=== PATIENT | female | born 1975 ===

== ENCOUNTER 2024-08-11 01:43 | Emergency (ER) | payer BC, SELFPAY ==
[2024-08-11 01:45] VITALS: BP 102/62
[2024-08-11 02:30] VITALS: BP 95/65
[2024-08-11 02:31] VITALS: BMI 18.9
[2024-08-11 02:52] LABS: % Basophils 0.2 % (0-2); % Eosinophils 0.5 % (0-6); % Immature Granulocytes 0.2 % (0-0.5); % Lymphocytes 22.5 % (20.5-51.1); % Monocytes 7.4 % (1.7-9.3); % Neutrophils 69.2 % (42.2-75.2); Absolute Lymphocytes 1.3 10^3/uL (1.2-3.4); Absolute Monocytes 0.4 10^3/uL (0.1-0.6); Absolute Neutrophils 3.9 10^3/uL (1.4-6.5); Hematocrit 33.5 % (37.0-47.0); Hemoglobin 11.2 g/dL (12.0-16.0); Mean Corp Hgb Conc. 33.4 g/dL (33.0-37.0); Mean Corpuscular Hgb 29.2 pg (27.0-31.0); Mean Corpuscular Volume 87.2 fL (81.0-99.0); Mean Platelet Volume 10.6 fL (7.4-10.4); Nucleated Red Blood Cells % 0 %; Platelet Count 238 10^3/uL (130-400); Red Blood Cell Count 3.84 10^6/uL (4.20-5.40); Red Cell Dist. Width 12.8 % (11.5-14.5); White Blood Cell Count 5.7 10^3/uL (4.8-10.8)
[2024-08-11 03:00] VITALS: BP 92/67
[2024-08-11 03:14] LABS: ALT (SGPT) 23 U/L (0-35); AST (SGOT) 41 U/L (14-36); Albumin 4.8 g/dl (3.5-5.0); Alkaline Phosphatase 26 U/L (38-126); Blood Urea Nitrogen 11 mg/dl (7-17); Calcium 8.9 mg/dl (8.4-10.2); Carbon Dioxide 23 mmol/L (22-30); Chloride 97 mmol/L (98-107); Estimated Creatinine Clearance 68 ml/min; Glucose 108 mg/dl (70-99); Potassium 4.1 mmol/L (3.5-5.1); Sodium 136 mmol/L (135-145); Total Bilirubin 0.1 mg/dl (0.2-1.3); Total Protein 7.2 g/dl (6.3-8.2); eGFR > 60.00
--- NOTE | 2024-08-11 03:44 | ED.GENMED ---
History of Present Illness
General
Chief Complaint: Alcohol Problem
Source: patient and family
Exam Limitations: none
Time Seen by Provider: 08/11/24 02:46
History of Present Illness
History of Present Illness:
48-year-old female presents to the emergency after consuming too much alcohol this evening. Patient drank wine and champagne. Patient was just coming off the stomach bug. Had 3 days of anorexia prior to this evening. Patient is here for
'hydration '. patient has no complaints.
Phy Exam
General Physical Exam
General Presentation: well appearing and mild distress
General age: appears stated age
General Skin: warm and dry
General Habitus: normal
General Mental: appears intoxicated
General Hydration: appears well hydrated
Cardiovascular Exam
Cardiovascular Exam: regular rate/rhythm
Pulmonary Exam
Pulmonary Exam: lungs clear and no respiratory distress
Gastrointestinal Exam
Gastrointestinal Exam: normal bowel sounds, non tender, soft and non distended
Neurological Exam
Neurological Exam: alert
Musculoskeletal Exam
Musculoskeletal Exam: full ROM and neuro vasc intact
Skin Exam
Skin Exam: normal color and warm/dry
Psychiatric Exam
Psychiatric Exam: normal mood/affect
Scores
Withdrawal Assessment of Alcohol
Withdrawal Assessment Completed?: Not applicable
Course
Orders/Labs/Results
Orders:
Orders
08/11/24 02:39
Complete Blood Count/With Diff Urgent
Comprehensive Metabolic Panel Urgent
08/11/24 03:43
0.9% Sodium Chloride 1000 ml [Nss] 1,000 ml IV BOLUS
Ondansetron Injectable [Zofran] 4 mg IV NOW STA
Abnormal Lab Results
08/11/24
02:39
RBC 3.84 L 10^6/uL
(4.20-5.40)
Hgb 11.2 L g/dL
(12.0-16.0)
Hct 33.5 L %
(37.0-47.0)
MPV 10.6 H fL
(7.4-10.4)
Chloride 97 L mmol/L
(98-107)
Glucose 108 H mg/dl
(70-99)
Total Bilirubin 0.1 L mg/dl
(0.2-1.3)
AST 41 H U/L
(14-36)
Alkaline Phosphatase 26 L U/L
(38-126)
08/11/24 02:39
08/11/24 02:39
Vital Signs
Initial and Last Documented VS:
Initial Vital Signs
Temp Pulse Resp BP Pulse Ox
97.2 F 78 18 102/62 100
08/11/24 01:45 08/11/24 01:45 08/11/24 01:45 08/11/24 01:45 08/11/24 01:45
Last Documented Vital Signs
Temp Pulse Resp BP Pulse Ox
97.2 F 85 14 97/55 100
08/11/24 01:45 08/11/24 05:00 08/11/24 05:00 08/11/24 05:00 08/11/24 05:01
*Critical Care Note
Total Time (30-74mins, 75-104mins- exclusive of procedures): Not Applicable
ED Attending Note
-
Portions of this chart may have been created with voice recognition software.� Occasional wrong word or��sound alike� substitutions may have occurred due to the inherent limitations of voice recognition software.
Discharge Plan
Departure
Patient Disposition: Home (Routine Discharge)
Date of Disposition: 08/11/24
Time of Disposition: 04:22
Patient with high blood pressure during this ER visit?: No
Condition: Good
Discharge Problem:
Alcohol intoxication
Instructions: Alcohol poisoning
Prescriptions:
New
ondansetron 4 mg tablet,disintegrating
4 mg PO Q8H 5 Days Qty: 15 0RF
Activity Restrictions/Additional Instructions:
It was a pleasure meeting you and taking part in your care. We hope for your continued healing and wellness.
Please read discharge instructions in their entirety. However, they are for general education and may not describe your exact diagnosis at discharge. Information on your ER visit and medical conditions were discussed with you along with appropriate
follow up information...
If indicated, please take your medications as instructed and indicated on discharge paperwork.
Please schedule a follow up appointment as directed. Call to schedule an appointment
Please return to the emergency department with ANY change in, persisting, or worsening of symptoms. If any of your symptoms do not improve, or persist, or become more severe within 6-12 hours, please return to the emergency department for further
care.
Please return to the emergency department if you develop a headache, neck pain/stiffness, fever greater than 100.4F, chest pain, shortness of breath, persistent nausea, vomiting, slurred speech, difficulty walking, numbness/tingling, weakness, signs
of infection or any other symptoms that are worrisome to you.
If you have any questions or concerns please do not hesitate to call the Hospital at or E-mail me directly at [email or web address]
Interventions
Interventions:
*Risk Screen - Suicide Last Done: 08/11/24 02:31
*General Assessment Last Done: 08/11/24 02:31
*Neglect/Abuse Screening Last Done: 08/11/24 02:31
ED- Fall Risk Assessment Last Done: 08/11/24 02:31
*ED COVID-19 Vaccine History Last Done: 08/11/24 02:31
*Nursing Disposition Last Done: 08/11/24 05:10
ED- Neurological Assessment Last Done: 08/11/24 02:33
ED-Psychological Assessment Last Done: 08/11/24 02:33
Discharge Date and Time
Discharge Date/Time: 08/11/24 05:10
Print Language: ARABIC
[2024-08-11] MEDS: ZOFRAN 4 MG IV (03:51)
[2024-08-11] MEDS: NSS 1000 IV (03:51)
[2024-08-11 04:00] VITALS: BP 87/57
[2024-08-11 04:52] VITALS: BP 82/59
--- NOTE | 2024-08-11 04:54 | EDRN ---
Dr Yu left discharge instructions to be given to pt - informed pt's bp remains in 80's. He will come back to speak with pt.
[2024-08-11 05:00] VITALS: BP 97/55
--- NOTE | 2024-08-11 05:05 | EDRN ---
Per Dr Yu, got pt up and had her walk around. Pt says she feels better and is ready to go home. No dizziness.
== END 2024-08-11 05:10 | disposition home or self-care (01) ==
LOC: EMR 01:43
PROVIDERS: EMERGENCY PHYSICIAN Student in an Organized Health Care Education/Training Program
DX: F10.129 Alcohol abuse with intoxication, unspecified (principal)
CPT/HCPCS: 99284; 96374; 96361; 80053; 85025

== ENCOUNTER 2025-06-29 11:59 | Emergency (ER) | payer BC, SELFPAY ==
[2025-06-29 12:04] VITALS: BP 118/78
--- NOTE | 2025-06-29 12:43 | ED.GENMED ---
History of Present Illness
<ELIU Pfeiffer - Last Filed: 06/30/25 15:04>
General
Chief Complaint: Skin Problem
Source: patient
Exam Limitations: none
Time Seen by Provider: 06/29/25 12:30
Nursing documentation reviewed up to this point in time: agreed with
History of Present Illness
History of Present Illness:
Patient is a 49-year-old female with past medical history of abscesses and cysts in the past presents for rectal abscess. She started with inflammation and what she describes as a small boil 4 to 5 days ago. It has gotten bigger. She denies any
fevers/drainage. Patient was at urgent care and sent to the ER for evaluation.
Phy Exam
<ELIU Pfeiffer - Last Filed: 06/30/25 15:04>
General Physical Exam
General Presentation: no apparent distress
General age: appears stated age
General Skin: warm and dry
General Habitus: normal
General Mental: alert
General Hydration: appears well hydrated
Gastrointestinal Exam
Gastrointestinal Exam: non tender, soft and other (+ abscess to right lower buttocks not involving the rectum + fluctuance )
Neurological Exam
Neurological Exam: alert and oriented x3
Musculoskeletal Exam
Musculoskeletal Exam: full ROM
Skin Exam
Skin Exam: normal color and warm/dry
Psychiatric Exam
Psychiatric Exam: normal mood/affect
Course
<ELIU Pfeiffer - Last Filed: 06/30/25 15:04>
Orders/Labs/Results
Orders:
Orders
06/29/25 12:47
IV Insert/Care/Rem.- Treatment PRN
0.9% Sodium Chloride 1000 ml [Nss] 1,000 ml IV BOLUS
06/29/25 12:48
CT Abd/Pel (IV only)-DH only Urgent
Comment:
Reason For Exam: right buttock abscess
06/29/25 13:22
Complete Blood Count/With Diff Urgent
Comprehensive Metabolic Panel Urgent
06/29/25 16:04
Amoxicillin 875 mg/Clav 125 mg [Augmentin 875 mg/125 mg] 1 tablet PO NOW STA
06/29/25 16:37
Wound Culture [Wound/Abscess/Other Culture] Urgent
HERVE Source: Buttock
Specimen Description:
Date Specimen was Collected: 06/29/25
Time Specimen was Collected: 16:35
Abnormal Lab Results
06/29/25
13:22
WBC 12.5 H 10^3/uL
(4.8-10.8)
RBC 4.14 L 10^6/uL
(4.20-5.40)
Hgb 11.5 L g/dL
(12.0-16.0)
Hct 36.4 L %
(37.0-47.0)
MCHC 31.6 L g/dL
(33.0-37.0)
Absolute Neuts (auto) 9.6 H 10^3/uL
(1.4-6.5)
Neutrophils % 76.9 H %
(42.2-75.2)
Lymphocytes % 15.0 L %
(20.5-51.1)
BUN 6 L mg/dl
(7-17)
06/29/25 13:22
06/29/25 13:22
Vital Signs
Initial and Last Documented VS:
Initial Vital Signs
Temp Pulse Resp BP Pulse Ox
97.9 F 70 16 118/78 100
06/29/25 12:04 06/29/25 12:04 06/29/25 12:04 06/29/25 12:04 06/29/25 12:04
Last Documented Vital Signs
Temp Pulse Resp BP Pulse Ox
97.9 F 70 16 118/78 100
06/29/25 12:04 06/29/25 12:04 06/29/25 12:04 06/29/25 12:04 06/29/25 12:44
Integrated Logistics Support Manager consulted with Physician
Integrated Logistics Support Manager consulted with physician?: Yes
Name of Physician Consulted: [email or web address]
<Oli Pimentel MD - Last Filed: 06/29/25 14:01>
Orders/Labs/Results
Orders:
Orders
06/29/25 12:47
IV Insert/Care/Rem.- Treatment PRN
0.9% Sodium Chloride 1000 ml [Nss] 1,000 ml IV BOLUS
06/29/25 12:48
CT Abd/Pel (IV only)-DH only Urgent
Comment:
Reason For Exam: right buttock abscess
06/29/25 13:22
Complete Blood Count/With Diff Urgent
Comprehensive Metabolic Panel Urgent
06/29/25 16:04
Amoxicillin 875 mg/Clav 125 mg [Augmentin 875 mg/125 mg] 1 tablet PO NOW STA
06/29/25 16:37
Wound Culture [Wound/Abscess/Other Culture] Urgent
HERVE Source: Buttock
Specimen Description:
Date Specimen was Collected: 06/29/25
Time Specimen was Collected: 16:35
Abnormal Lab Results
06/29/25
13:22
WBC 12.5 H 10^3/uL
(4.8-10.8)
RBC 4.14 L 10^6/uL
(4.20-5.40)
Hgb 11.5 L g/dL
(12.0-16.0)
Hct 36.4 L %
(37.0-47.0)
MCHC 31.6 L g/dL
(33.0-37.0)
Absolute Neuts (auto) 9.6 H 10^3/uL
(1.4-6.5)
Neutrophils % 76.9 H %
(42.2-75.2)
Lymphocytes % 15.0 L %
(20.5-51.1)
BUN 6 L mg/dl
(7-17)
06/29/25 13:22
06/29/25 13:22
Vital Signs
Initial and Last Documented VS:
Initial Vital Signs
Temp Pulse Resp BP Pulse Ox
97.9 F 70 16 118/78 100
06/29/25 12:04 06/29/25 12:04 06/29/25 12:04 06/29/25 12:04 06/29/25 12:04
Last Documented Vital Signs
Temp Pulse Resp BP Pulse Ox
97.9 F 70 16 118/78 100
06/29/25 12:04 06/29/25 12:04 06/29/25 12:04 06/29/25 12:04 06/29/25 12:44
Procedures
<ELIU Pfeiffer - Last Filed: 06/30/25 15:04>
Incision/Drainage/Joint Aspiration
Right:
Anethesia: 1% Lidocaine with Epi
Preparation: cleaned with Betadine
Type of procedure: incise
Description of abscess: greater than 3cm
Loculations broken up: Yes
How much fluid was obtained?: large amount
Fluid description: purulent
Treatment: packed with gauze
<ELIU Pfeiffer - Last Filed: 06/30/25 15:04>
MDM/Problems Addressed
Differential Diagnosis Includes:
Not limited to buttock abscess, possible hong rectal abscess but unlikely
MDM/Problems Addressed:
Patient is a 49-year-old female with a right buttock abscess. CAT scan negative for rectal involvement. Will incise and drain will DC on Augmentin. Patient denies any fever she is afebrile well-appearing case reviewed with ED physician evaluated
patient bedside. White count minimally elevated however afebrile patient very well-appearing
Patient tolerated incision and drainage well moderate to large amount of purulent drainage. will d/c w/ follow-up at [facility] as patient does not have a family doctor in the area discussed close outpatient follow-up
and return if any worsening of symptoms.
<ELIU Pfeiffer - Last Filed: 06/30/25 15:04>
*Radiology
Radiology exam reviewed: radiology read reviewed
*Pulse Oximetry
SaO2: 100
Oxygen Mode of Delivery: Room air
Patient hypoxic: no
*Critical Care Note
Total Time (30-74mins, 75-104mins- exclusive of procedures): Not Applicable
ED Attending Note
<ELIU Pfeiffer - Last Filed: 06/30/25 15:04>
-
Portions of this chart may have been created with voice recognition software.� Occasional wrong word or��sound alike� substitutions may have occurred due to the inherent limitations of voice recognition software.
<Oli Pimentel MD - Last Filed: 06/29/25 14:01>
ED Attending Note
Patient seen and examined by attending physician: Yes
ED Attending Note:
I have seen and evaluated the patient with a [id number] encounter. I have spoken to the advance practicer provider and involved in the medical history, the physical exam, medical decision making.
Evaluation and management service: agree unless noted differently below.
Results interpretation: agree unless noted differently below.
Focused HPI: 49-year-old female with history as noted presents with 5 days of rectal pain�she says painful bump near her rectum. No significant pain with bowel movements. No fevers or chills.
Physical exam: Awake and alert, not in distress. Patient has area of erythema, warmth, fluctuance on the right buttock with some erythema streaking towards the midline approximately 1 cm removed from anal verge
Medical Decision Makin-year-old female presents with rectal pain�appears to have a perirectal abscess. Check labs and CT to evaluate extent, will need I&D bedside versus OR depending on CT results.
Discharge Plan
Departure
Patient Disposition: Home (Routine Discharge)
Date of Disposition: 06/29/25
Time of Disposition: 16:31
Patient with high blood pressure during this ER visit?: No
Condition: Fair
Covid-19: Not Applicable
Discharge Problem:
Abscess
Instructions: Abscess incision and drainage - ED (DC)
Prescriptions:
New
amoxicillin-pot clavulanate 875-125 mg tablet
1 tab PO BID Qty: 14 0RF
No Action
ondansetron 4 mg tablet,disintegrating
4 mg PO Q8H 5 Days Qty: 15 0RF
Referrals:
[facility] [Outside]
NONE,* [Family Provider, Internal Medicine]
Activity Restrictions/Additional Instructions:
As discussed keep area clean and dry. Antibiotic twice a day for the next 7 days. Please follow with your family doctor(family practice clinic) in the next 2-3 days for reevaluation wound check/packing removal. Return if any worsening of symptoms.
Interventions
Interventions:
*Risk Screen - Suicide Last Done: 06/29/25 12:04
Discharge Date and Time
Discharge Date/Time: 06/29/25 16:51
Print Language: DANISH
[2025-06-29] MEDS: NSS 1000 IV (13:26)
[2025-06-29 13:32] LABS: Hematocrit 36.4 % (37.0-47.0); Hemoglobin 11.5 g/dL (12.0-16.0); Mean Corp Hgb Conc. 31.6 g/dL (33.0-37.0); Mean Corpuscular Volume 87.9 fL (81.0-99.0); Nucleated Red Blood Cells % 0 %; Platelet Count 316 10^3/uL (130-400); Red Cell Dist. Width 13.8 % (11.5-14.5)
[2025-06-29 13:57] LABS: ALT (SGPT) 13 U/L (0-35); AST (SGOT) 20 U/L (14-36); Albumin 4.5 g/dl (3.5-5.0); Alkaline Phosphatase 54 U/L (38-126); Blood Urea Nitrogen 6 mg/dl (7-17); Calcium 9.4 mg/dl (8.4-10.2); Carbon Dioxide 28 mmol/L (22-30); Chloride 102 mmol/L (98-107); Glucose 92 mg/dl (70-99); Potassium 4.1 mmol/L (3.5-5.1); Sodium 137 mmol/L (135-145); Total Protein 7.3 g/dl (6.3-8.2); eGFR > 60.00
[2025-06-29] MEDS: AUGMENTIN 875 MG/125 MG 1 TABLET PO (16:16)
== END 2025-06-29 16:51 | disposition home or self-care (01) ==
LOC: EMR 11:59
PROVIDERS: Nurse Practitioner; EMERGENCY PHYSICIAN Emergency Medicine
DX: K61.0 Anal abscess (principal)
CPT/HCPCS: 99284; 96360; 46050; 74177; 80053; 85025; 87070; 87205; Q9967

== ENCOUNTER 2025-07-01 15:14 | Emergency (ER) | payer BC, SELFPAY ==
[2025-07-01 15:18] VITALS: BP 132/75
[2025-07-01 16:01] VITALS: BMI 21.2
--- NOTE | 2025-07-01 16:18 | ED.GENMED ---
History of Present Illness
General
Chief Complaint: Wound Check/Suture Removal
Source: patient and records
Exam Limitations: none
Time Seen by Provider: 07/01/25 16:01
History of Present Illness
History of Present Illness:
49yoF with no significant past medical history presenting for a wound check. Patient was seen in the ED 2 days ago for a buttock abscess. I&D was performed and packing was placed. She was told to have the packing removed in 48 hours. She went to
urgent care to have this done. While she was being assessed, the urgent care provider noted some tenderness and sent her back to the ED for evaluation. Patient states her symptoms do seem significantly improved since drainage. She has been taking
doxycycline at home. She denies any fevers or chills.
Phy Exam
General Physical Exam
General Presentation: well appearing and no apparent distress
General Skin: warm and dry
General Habitus: normal
General Mental: alert
ENT Exam
ENT Exam: normocephalic
Pulmonary Exam
Pulmonary Exam: no respiratory distress
Neurological Exam
Neurological Exam: alert
Sanam Coma Scale
Eye Opening: Spontaneous
Verbal Response: Oriented
Motor Response: Obeys Commands
GCS Total Score: 15
Skin Exam
Skin Exam: warm/dry and other (L buttock abscess noted with packing in place. Small area of residual induration noted. No fluctuance or surrounding cellulitis. )
Psychiatric Exam
Psychiatric Exam: normal mood/affect
Course
Vital Signs
Initial and Last Documented VS:
Initial Vital Signs
Temp Pulse Resp BP Pulse Ox
98.7 F 69 20 132/75 100
07/01/25 15:18 07/01/25 15:18 07/01/25 15:18 07/01/25 15:18 07/01/25 15:18
Last Documented Vital Signs
Temp Pulse Resp BP Pulse Ox
98.7 F 69 20 132/75 100
07/01/25 15:18 07/01/25 15:18 07/01/25 15:18 07/01/25 15:18 07/01/25 16:19
MDM/Problems Addressed
Differential Diagnosis Includes:
49yoF here for packing removal. 2 days s/p buttock abscess I&D. Currently on abx and feeling improved. No f/c. VSS. Patient well appearing. Small residual area of induration noted on exam without cellulitis or fluctuance. Packing removed without
difficulty. Patient advised to continue abx and warm compresses. ED return precautions reviewed and she was discharged in stable condition.
*Pulse Oximetry
SaO2: 100
Oxygen Mode of Delivery: Room air
Patient hypoxic: no
*Critical Care Note
Total Time (30-74mins, 75-104mins- exclusive of procedures): Not Applicable
ED Attending Note
-
Portions of this chart may have been created with voice recognition software.� Occasional wrong word or��sound alike� substitutions may have occurred due to the inherent limitations of voice recognition software.
Discharge Plan
Departure
Patient Disposition: Home (Routine Discharge)
Date of Disposition: 07/01/25
Time of Disposition: 16:20
Patient with high blood pressure during this ER visit?: No
Discharge Problem:
Abscess packing removal
Instructions: Skin Abscess
Prescriptions:
No Action
ondansetron 4 mg tablet,disintegrating
4 mg PO Q8H 5 Days Qty: 15 0RF
amoxicillin-pot clavulanate 875-125 mg tablet
1 tab PO BID Qty: 14 0RF
Referrals:
[facility] [Provider Group]
Activity Restrictions/Additional Instructions:
Continue taking antibiotics. Apply warm compresses to affected area.
Return to the ER with any new or worsening symptoms including worsening swelling or fevers.
Interventions
Interventions:
*Risk Screen - Suicide Last Done: 07/01/25 15:18
*General Assessment Last Done: 07/01/25 15:18
*Neglect/Abuse Screening Last Done: 07/01/25 15:18
*ED- Fall Risk Assessment Last Done: 07/01/25 16:01
*ED COVID-19 Vaccine History Last Done: 07/01/25 16:01
*ED Influenza Vaccine History Last Done: 07/01/25 16:01
Discharge Date and Time
Print Language: CZECH
== END 2025-07-01 16:37 | disposition home or self-care (01) ==
LOC: EMR 15:14
PROVIDERS: EMERGENCY PHYSICIAN Emergency Medicine
DX: Z48.01 Encounter for change or removal of surgical wound dressing (principal)
CPT/HCPCS: 99281